=== PATIENT | female | born 1975 | race Caucasian/White ===

== ENCOUNTER → 2022-11-08 08:53 | Outpatient (BNVA) | payer OTHER, SELFPAY | PROVIDERS: Visit Provider Physician Assistant | DX: S46.911A Strain of unspecified muscle, fascia and tendon at shoulder and upper arm level, right arm, initial encounter (principal); S46.811A Strain of other muscles, fascia and tendons at shoulder and upper arm level, right arm, initial encounter; X58.XXXA Exposure to other specified factors, initial encounter | CPT/HCPCS: 73030; 99203 ==

== ENCOUNTER → 2022-11-14 15:16 | Outpatient (BNVA) | payer OTHER, SELFPAY | PROVIDERS: Visit Provider Physician Assistant Medical | DX: S46.911A Strain of unspecified muscle, fascia and tendon at shoulder and upper arm level, right arm, initial encounter (principal); S46.811A Strain of other muscles, fascia and tendons at shoulder and upper arm level, right arm, initial encounter; X58.XXXA Exposure to other specified factors, initial encounter | CPT/HCPCS: 99213 ==

== ENCOUNTER → 2022-11-28 15:07 | Outpatient (BNVA) | payer OTHER, SELFPAY | PROVIDERS: Visit Provider Physician Assistant Medical | DX: S46.911D Strain of unspecified muscle, fascia and tendon at shoulder and upper arm level, right arm, subsequent encounter (principal); S46.811D Strain of other muscles, fascia and tendons at shoulder and upper arm level, right arm, subsequent encounter; S46.211D Strain of muscle, fascia and tendon of other parts of biceps, right arm, subsequent encounter; X58.XXXD Exposure to other specified factors, subsequent encounter | CPT/HCPCS: 99213 ==

== ENCOUNTER → 2022-12-30 13:44 | Outpatient (BNVA) | payer OTHER, SELFPAY | PROVIDERS: Visit Provider Physician Assistant Medical | DX: S46.911D Strain of unspecified muscle, fascia and tendon at shoulder and upper arm level, right arm, subsequent encounter (principal); S46.811D Strain of other muscles, fascia and tendons at shoulder and upper arm level, right arm, subsequent encounter; S46.211D Strain of muscle, fascia and tendon of other parts of biceps, right arm, subsequent encounter; X58.XXXD Exposure to other specified factors, subsequent encounter | CPT/HCPCS: 99213 ==

== ENCOUNTER 2023-01-20 10:25 | Outpatient (REF) | payer OTHER, SELFPAY ==
--- NOTE | ~2023-01-20 | MR_ITS ---
EXAMINATION: MR SHOULDER WITHOUT CONTRAST, RIGHT CLINICAL INFORMATION: Pushing injury, strain, persistent pain. COMPARISON: Radiograph dated 11/08/2022 TECHNIQUE: MRI of the shoulder without contrast was performed on a high-field scanner. FINDINGS: ROTATOR CUFF: There is chowznfp-me-sgvntk tendinosis of the supraspinatus and infraspinatus with bursal surface fraying at the junctional fibers. No discrete tears. More kyec-ny-dnidearb subscapularis tendinosis. No muscle atrophy or fatty infiltration. BICEPS: Normal. CORACOACROMIAL ARCH: The undersurface of the acromion is curved with no subacromial spur. Mild acromioclavicular osteoarthritis. Hbqh-wp-mtnayojx subacromial subdeltoid bursitis. LABRUM/CAPSULE: Labrum is intact. No tears. Joint capsule is unremarkable. GLENOHUMERAL JOINT/MARROW: Articular cartilage appears well-preserved. No fracture or malalignment. Marrow signal is normal. No significant joint effusion. MR/MR shoulder RT wo con IMPRESSION: 1. Lwlgabah-vx-lwxawh supraspinatus and infraspinatus tendinosis with bursal surface fraying at the junctional fibers and jufx-ru-hvhuitrn overlying subacromial subdeltoid bursitis. No rotator cuff tears. 2. Mild acromioclavicular osteoarthritis.
== END 2023-01-20 10:26 | disposition home or self-care (01) ==
LOC: HO.MRI 10:25
PROVIDERS: Visit Provider Internal Medicine
DX: S46.911A Strain of unspecified muscle, fascia and tendon at shoulder and upper arm level, right arm, initial encounter (principal); M25.511 Pain in right shoulder; X58.XXXA Exposure to other specified factors, initial encounter; Y93.9 Activity, unspecified; Y92.9 Unspecified place or not applicable; Y99.9 Unspecified external cause status
CPT/HCPCS: 73221

== ENCOUNTER → 2023-01-24 08:57 | Outpatient (BNVA) | payer OTHER, SELFPAY | PROVIDERS: Visit Provider Physician Assistant | DX: M75.81 Other shoulder lesions, right shoulder (principal); M19.011 Primary osteoarthritis, right shoulder | CPT/HCPCS: 20610; 99202; J1040 ==

== ENCOUNTER 2023-02-25 14:00 | Outpatient (RCR) | payer OTHER, SELFPAY ==
--- NOTE | 2022-11-29 16:33 | MHC.PT.EP ---
[facility] [place] Office [place] Office [place] Office [address] Camden Mckinley [address] [phone] F: [phone] F: [phone] F: [phone] F: [phone] Physical Therapy Plan of Care Date of Evaluation: Date of Surgery: NA Diagnosis: R SHOULDER BICEPS/TRAPEZIUS STRAIN Assessment: Pt IS 46 YO RHD F REFERRED TO PT FROM [facility] ([facility]) WITH R SHOULDER/BICEPS/TRAPEZIUS STRAIN. Pt REPORTS ONE OF HER STUDENTS PULLED/PUSHED ON DOOR AND Pt PUSHED AGAINST DOOR. WAS SENT TO [facility] BECAUSE OF SOME PAIN AND LIMITED MOBILITY. REFERRED TO PT. PER WC INCIDENT OCCURRED ON 11/06/22 HAS APPT WITH CHIROPRACTER TODAY (HAS BEEN SEEING REGULARLY FOR SOME TIME). PRESENTS TO PT WITH DECREASED R SHLDER ROM AND STRENGTH WITH C/O PAIN AND LIMITED USE. SHOULD BENEFIT FROM PT TO ADDRESS THESE ISSUES Frequency and Duration: The patient will be seen 2X/WK X 6 WKS Short Term Goals: 1. INCREASED AWARENESS POSTURE AND SHLDER CARE 2. INCREASED R SHLDER ABDUCTION TO 130 DEGREES 2. INCREASED R SHLDER ER TO 80 DEGREES Long-Term Goals: 1. I HEP WITH DC EX PLAN 2. RETURN TO WORKING OUT 3. DECREASED R SHLDER PAIN AT LEAST 50% WITH ADLS 4 IMPROVED SPADI (97/130 AT SOC) Treatment Plan: Modalities to reduce pain, spasms and effusion. Manual therapy to restore motion and function. Therapeutic exercise to improve strength and flexibility. Neuromuscular re-education for posture and balance. Therapeutic activities to return to functional activities of daily living. Electronically signed by: CHAD GUTIERREZ PT Please sign and return to therapist. Thank you for your referral.
--- NOTE | 2023-05-02 13:21 | MHC.PT.DC ---
[facility] [place] Office [place] Office [place] Office [address] Camden Mckinley [address] [phone] F: [phone] F: [phone] F: [phone] F: [phone] Physical Therapy Discharge Report Diagnosis: R SHOULDER BICEPS/TRAPEZIUS STRAIN Date of Surgery: NA Date of Evaluation: 11/29/22 Date of Discharge: 05/02/23 Treatments to Date: 8 Cancellations to Date: 4 No Shows to Date: Discharge Status: Independent with HEP Discharge Summary: Pt LAST SEEN 02/25/23. PER ASSESSMENT AT THIS APPT CONTINUES WITH LIMITED SHLDER ROM ON R, AND CONT C/O PAIN. TO SEE ORTHO NEXT WEEK PER ORTHO APPT ON 04/28/23 , Pt SEEMS TO BE GOING TO PT AT AT. WILL DC HER CHART AT THIS TIME Electronically signed by: CHAD GUTIERREZ PT Please sign and return to therapist. Thank you for your referral.
--- NOTE | 2023-05-02 13:23 | MHC.PT.DC ---
[facility] [place] Office [place] Office [place] Office [address] Camdne Mckinley [address] [phone] F: [phone] F: [phone] F: [phone] F: [phone] Physical Therapy Discharge Report Diagnosis: R SHOULDER BICEPS/TRAPEZIUS STRAIN Date of Surgery: NA Date of Evaluation: 11/29/22 Date of Discharge: 05/02/23 Treatments to Date: 8 Cancellations to Date: 4 No Shows to Date: Discharge Status: Independent with HEP Discharge Summary: Pt LAST SEEN 02/25/23. PER ASSESSMENT AT THIS APPT CONTINUES WITH LIMITED SHLDER ROM ON R, AND CONT C/O PAIN. TO SEE ORTHO NEXT WEEK PER ORTHO APPT ON 04/28/23 , Pt SEEMS TO BE GOING TO PT AT [facility]. WILL DC HER CHART AT THIS TIME Electronically signed by: CHAD GUTIERREZ PT Please sign and return to therapist. Thank you for your referral.
== END 2023-05-02 13:21 | disposition home or self-care (01) ==
LOC: HO.PT 14:00
PROVIDERS: Visit Provider Physician Assistant Medical
DX: S46.911D Strain of unspecified muscle, fascia and tendon at shoulder and upper arm level, right arm, subsequent encounter (principal); S46.211D Strain of muscle, fascia and tendon of other parts of biceps, right arm, subsequent encounter
CPT/HCPCS: 97110; 97140; 97161; 97535

== ENCOUNTER → 2023-04-28 08:31 | Outpatient (BNVA) | payer OTHER, SELFPAY | PROVIDERS: Visit Provider Physician Assistant | DX: M75.81 Other shoulder lesions, right shoulder (principal); M19.011 Primary osteoarthritis, right shoulder | CPT/HCPCS: 20610; 99212; J1040 ==

== ENCOUNTER 2023-07-24 13:46 | Outpatient (AMB) | payer SELFPAY ==
--- NOTE | 2023-07-24 13:48 | MHC.OFFVIS ---
Intake Vital Signs 07/24/23 13:52 Height 5 ft 4 in Weight 194 lb BMI 33.3 Intake Visit Reasons: OV- WC RT shoulder injury s/p therapy/injection Intake Note: Marina a 47 year old right hand dominant female who presents today for a follow up of right shoulder, last injection on 04/28/23. Patient reports injection provided her some relief until about 2 weeks ago. She has completed PT and feels this was helping with her pain. States having difficulty with sleeping due to pain. Finds relief with ibuprofen. Allergies lactose intolerance Allergy (Uncoded 07/24/23 13:54) Stomach Upset HPI OV- WC RT shoulder injury s/p therapy/injection HPI Details 47-year-old right hand dominant female who returns to the office today for a follow-up of right shoulder injury. She continues to have pain in her right shoulder which is aggravated with sleeping at night. She had her last injection on 04/28/23 which provided her relief until 2 weeks ago. She has completed with physical therapy with benefits. She finds relief with ibuprofen. [facility] Surgical History Hx of cervical spine surgery Social History Patient Tobacco Use Status: Never used Tobacco Current occupational status: employed Current occupation: teacher, right handed Review of Systems Const All systems reviewed & are unremarkable except as noted in HPI and below Physical Exam Vital Signs: BMI result Body Mass Index 33.3 Const General: cooperative, healthy appearing, comfortable, no acute distress, well developed and alert Orientation/consciousness: patient oriented x3 HEENT Head: Yes normal to inspection, Yes normocephalic and Yes atraumatic Eyes General: appearance normal, both eyes and all related structures Resp Effort & Inspection: normal respiratory effort and able to speak in complete sentences Cardio Rate: regular rate Peripheral pulses: Peripheral pulses 2+ throughout GI Palpation (GI): Soft to palpation Skin Lesions: no lesions Rashes: no rashes Neuro General: patient oriented x3 Extrem Other: Right shoulder normal to inspection. Tenderness over the bicipital groove and along the AC joint of the shoulder. Forward flexion to 175, external rotation to 90, internal rotation to S1. 5/5 RTC strength.Negative Morgan and cross body abduction. Positive Haque's. NVI. Assessment & Plan Assessment & Plan (1) Tendinitis of right rotator cuff: Code(s): M75.81 - Other shoulder lesions, right shoulder (2) Arthritis of right acromioclavicular joint: Code(s): M19.011 - Primary osteoarthritis, right shoulder Plan She will continue with her home exercises program. She will discontinue the use of naproxen and I did send a prescription if Celebrex to her pharmacy for her to use with occasional flareups. She will increase activity as tolerated. She was given a work note today to avoid repetitive motions and overhead lifting. If symptoms persist or worsens to where it is limiting her daily activities, she will contact the office for a consultation with Dr. Raman to discuss whether or not she would benefit from surgical intervention. Medications: New celecoxib (Celebrex) 200 mg PO BID 60 caps 3RF 30 days Patient Instructions: Scribed for Himanshu Enriquez PA-C, by Fritz Soriano medical lab technologist, on 07/24/2023 at 1:45 PM EST. Himanshu Suarez PA-C, have personally reviewed and agree with the information entered by the scribe. Coding Level of Care Code Est Pt Level 3 (71710) Diagnoses Tendinitis of right rotator cuff M75.81 Arthritis of right acromioclavicular joint M19.011
[2023-07-24 13:52] VITALS: BMI 33.3
== END 2023-07-24 14:16 | disposition home or self-care (01) ==
PROVIDERS: Visit Provider Physician Assistant
DX: M75.81 Other shoulder lesions, right shoulder (principal); M19.011 Primary osteoarthritis, right shoulder
CPT/HCPCS: 99213

== ENCOUNTER → 2023-07-24 13:46 | Outpatient (BNVA) | payer OTHER, SELFPAY | PROVIDERS: Visit Provider Physician Assistant | DX: M75.81 Other shoulder lesions, right shoulder (principal); M19.011 Primary osteoarthritis, right shoulder | CPT/HCPCS: 99212 ==